=== PATIENT | female | born 1975 | race Caucasian/White ===

== ENCOUNTER 2023-06-17 11:01 | Emergency (ER) | payer OTHER ==
[2023-06-17 11:08] VITALS: TEMP 97.1
--- NOTE | 2023-06-17 11:17 | ERPHSYRPT ---
- History of Present Illness Time Seen by Provider: 06/17/23 11:10 Historian: patient Exam Limitations: no limitations Patient Subjective Stated Complaint: Pt states "I was working and I have had chest pain since yesterday and I am under a ton of stress and the nurses where I work said my blood pressure was up and told me to come here." Triage Nursing Assessment: pt presented alert and oriented X 3, skin pwd. Pt ambulates with an upright steady gait, able to speak in clear full sentenecs. Pt in no apparent distress. Physician History: 47-year-old female presents to our ED for evaluation of chest pain. Patient states that chest pain started yesterday. Patient was at work today. 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 Patient states she developed some chest pain at that time. Patient told the nurse that she works with. They checked her blood pressure found it was elevated and instructed her to come to our ED. Patient's pain described as an ache that is substernal. No radiation. No associated shortness of breath no nausea vomiting or diaphoresis. Patient voices no other complaints or concerns at this time. Portions of this note were created with voice recognition technology. There may be grammatical, spelling, punctuation or sound alike errors Timing/Duration: yesterday Activities at Onset: none Quality: aching Location: substernal Chest Pain Radiation: no radiation Severity of Pain-Max: moderate Severity of Pain-Current: mild Modifying Factors: Improves With: nothing Associated Symptoms: denies symptoms Prior Chest Pain/Cardiac Workup: no prior chest pain Nitro Today/Relief: no nitro taken today Aspirin Treatment Today: no aspirin today Allergies/Adverse Reactions: morphine Allergy (Intermediate, Verified 06/17/23 11:08) itch and hives Home Medications: No Reportable Medications [No Reported Medications] 06/17/23 [History] Hx Tetanus, Diphtheria Vaccination/Date Given: No Hx Influenza Vaccination/Date Given: Yes Hx Pneumococcal Vaccination/Date Given: No Immunizations Up to Date: No Travel Risk - International Travel Have you traveled outside of the country in past 3 weeks: No - Coronavirus Screening Are you exhibiting any of the following symptoms?: No Close contact with a COVID-19 positive Pt in past 14-21 Days: No - Vaccine Status Have you recieved a Covid-19 vaccination: No - Review of Systems Constitutional: No Symptoms, No Fever, No Chills Eyes: No Symptoms Ears, Nose, & Throat: No Symptoms Respiratory: No Symptoms, No Cough, No Dyspnea Cardiac: No Symptoms, No Chest Pain, No Edema, No Syncope Abdominal/Gastrointestinal: No Symptoms, No Abdominal Pain, No Nausea, No Vomiting, No Diarrhea Genitourinary Symptoms: No Symptoms, No Dysuria Musculoskeletal: No Symptoms, No Back Pain, No Neck Pain Skin: No Symptoms, No Rash Neurological: No Symptoms, No Dizziness, No Focal Weakness, No Sensory Changes Psychological: No Symptoms Endocrine: No Symptoms Hematologic/Lymphatic: No Symptoms Immunological/Allergic: No Symptoms All Other Systems: Reviewed and Negative - Past Medical History Pertinent Past Medical History: Yes Psycho-Social History: Anxiety, Depression - Past Surgical History Past Surgical History: Yes Other Surgical History: left knee replacement. hysterectomy. parathyroid. lasix - Social History Smoking Status: Never smoker Exposure to second hand smoke: No Drug Use: none Patient Lives Alone: No - Female History Hx Last Menstrual Period: 2012 Hx Now: No - Nursing Vital Signs Nursing Vital Signs: Initial Vital Signs Pulse Rate 73 06/17/23 11:01 Respiratory Rate 17 06/17/23 11:01 Blood Pressure 162/78 06/17/23 11:01 O2 Sat by Pulse Oximetry 99 06/17/23 11:01 Pain Scale Pain Intensity 0 - Physical Exam General Appearance: no apparent distress, alert Eye Exam: PERRL/EOMI, eyes nml inspection Ears, Nose, Throat Exam: normal ENT inspection, moist mucous membranes Neck Exam: normal inspection, non-tender, supple, full range of motion Respiratory Exam: normal breath sounds, lungs clear, No respiratory distress Cardiovascular Exam: regular rate/rhythm, normal heart sounds Gastrointestinal/Abdomen Exam: soft, No tenderness, No mass Back Exam: normal inspection, No CVA tenderness, No vertebral tenderness Extremity Exam: normal inspection, normal range of motion Neurologic Exam: alert, oriented x 3, cooperative, normal mood/affect, sensation nml, No motor deficits Skin Exam: normal color, warm, dry Lymphatic Exam: No adenopathy SpO2 Interpretation: normal SpO2: 100 O2 Delivery: Room Air - Course Nursing assessment & vital signs reviewed: Yes EKG Interpreted by Me: RATE, Sinus Rhythm, NORMAL AXIS, NORMAL INTERVALS - Radiology Exams Chest X-ray Interpretation: Teleradiologist Report (No acute findings) Ordered Tests: Active Orders 24 hr Category Date Time Status Posting Clerk STAT Care 06/17/23 11:16 Active EKG-ER Only STAT Care 06/17/23 11:15 Active IV Insertion STAT Care 06/17/23 11:15 Active Pulse Oximetry (ED) STAT Care 06/17/23 11:15 Active CHEST 1 VIEW (PORTABLE) Stat Exams 06/17/23 12:46 Completed CBC W DIFF Stat Lab 06/17/23 11:20 Completed CMP Stat Lab 06/17/23 11:20 Completed D-DIMER QUANTITATIVE Stat Lab 06/17/23 11:20 Completed TROPONIN Q4H Lab 06/17/23 11:20 Completed TROPONIN Q4H Lab 06/17/23 14:00 Completed TROPONIN Q4H Lab 06/17/23 19:30 Ordered Medication Summary Discontinued Medications Generic Name Dose Route Start Last Admin Trade Name Freq PRN Reason Stop Dose Admin Diphenhydramine HCl 25 mg 06/17/23 12:47 06/17/23 12:49 Diphenhydramine Hcl 50 Mg/Ml Vial IV 06/17/23 12:48 25 mg STAT ONE Administration Diphenhydramine HCl Confirm 06/17/23 12:48 Diphenhydramine Hcl 50 Mg/Ml Vial Administered 06/17/23 12:49 Dose 50 mg .ROUTE .STK-MED ONE Nitroglycerin 1 gm 06/17/23 12:44 06/17/23 12:48 Nitroglycerin 1 Gm Packet TOP 06/17/23 12:45 1 gm STAT ONE Administration Nitroglycerin Confirm 06/17/23 12:48 Nitroglycerin 1 Gm Packet Administered 06/17/23 12:49 Dose 1 gm .ROUTE .STK-MED ONE Lab/Rad Data: Laboratory Result Diagrams 06/17/23 11:20 06/17/23 11:20 Laboratory Results 06/17/23 06/17/23 06/17/23 Range/Units 14:00 11:20 11:20 WBC (4.0-10.5) x10^3/uL RBC (4.1-5.4) x10^6/uL Hgb (12.0-16.0) g/dL Hct (35-47) % MCV (78-100) fL MCH (26-32) pg MCHC (32-36) g/dL RDW (11.5-14.0) % Plt Count (150-450) x10^3/uL MPV (7.5-11.0) fL Gran % (36.0-66.0) % Immature Gran % (Auto) (0.00-0.4) % Nucleat RBC Rel Count (0.00-0.1) % Eos # (Auto) (0-0.5) x10^3/uL Immature Gran # (Auto) (0.00-0.03) x10^3u/L Absolute Lymphs (auto) (1.0-4.6) x10^3/uL Absolute Monos (auto) (0.0-1.3) x10^3/uL Absolute Nucleated RBC (0.00-0.01) x10^3u/L Lymphocytes % (24.0-44.0) % Monocytes % (0.0-12.0) % Eosinophils % (0.00-5.0) % Basophils % (0.0-0.4) % Absolute Granulocytes (1.4-6.9) x10^3/uL Basophils # (0-0.4) x10^3/uL D-Dimer 0.37 (0.0-0.50) mg/L Sodium (135-145) mmol/L Potassium (3.5-5.1) mmol/L Chloride (98-107) mmol/L Carbon Dioxide (22-30) mmol/L Anion Gap (5-15) MEQ/L BUN (7-17) mg/dL Creatinine (0.52-1.04) mg/dL Estimated GFR ML/MIN Glucose (74-106) mg/dL Calcium (8.4-10.2) mg/dL Total Bilirubin (0.2-1.3) mg/dL AST (14-36) U/L ALT (0-35) U/L Alkaline Phosphatase (38-126) U/L Troponin I < 0.012 < 0.012 (0.000-0.034) ng/mL Serum Total Protein (6.3-8.2) g/dL Albumin (3.5-5.0) g/dL 06/17/23 06/17/23 Range/Units 11:20 11:20 WBC 6.5 (4.0-10.5) x10^3/uL RBC 4.72 (4.1-5.4) x10^6/uL Hgb 12.8 (12.0-16.0) g/dL Hct 40.5 (35-47) % MCV 85.8 (78-100) fL MCH 27.1 (26-32) pg MCHC 31.6 L (32-36) g/dL RDW 13.3 (11.5-14.0) % Plt Count 217 (150-450) x10^3/uL MPV 9.0 (7.5-11.0) fL Gran % 65.5 (36.0-66.0) % Immature Gran % (Auto) 0.5 H (0.00-0.4) % Nucleat RBC Rel Count 0.0 (0.00-0.1) % Eos # (Auto) 0.12 (0-0.5) x10^3/uL Immature Gran # (Auto) 0.03 (0.00-0.03) x10^3u/L Absolute Lymphs (auto) 1.50 (1.0-4.6) x10^3/uL Absolute Monos (auto) 0.53 (0.0-1.3) x10^3/uL Absolute Nucleated RBC 0.00 (0.00-0.01) x10^3u/L Lymphocytes % 23.1 L (24.0-44.0) % Monocytes % 8.2 (0.0-12.0) % Eosinophils % 1.8 (0.00-5.0) % Basophils % 0.9 (0.0-0.4) % Absolute Granulocytes 4.26 (1.4-6.9) x10^3/uL Basophils # 0.06 (0-0.4) x10^3/uL D-Dimer (0.0-0.50) mg/L Sodium 139 (135-145) mmol/L Potassium 3.7 (3.5-5.1) mmol/L Chloride 105 (98-107) mmol/L Carbon Dioxide 28 (22-30) mmol/L Anion Gap 10.7 (5-15) MEQ/L BUN 15 (7-17) mg/dL Creatinine 0.56 (0.52-1.04) mg/dL Estimated GFR 113.9 ML/MIN Glucose 97 (74-106) mg/dL Calcium 8.5 (8.4-10.2) mg/dL Total Bilirubin 0.60 (0.2-1.3) mg/dL AST 27 (14-36) U/L ALT 21 (0-35) U/L Alkaline Phosphatase 116 (38-126) U/L Troponin I (0.000-0.034) ng/mL Serum Total Protein 7.5 (6.3-8.2) g/dL Albumin 4.1 (3.5-5.0) g/dL - Progress Progress: improved Air Movement: good Progress Note: Heart score is 3 47-year-old female presents to our ED for evaluation of chest pain x 2 days. Patient has a BMI of 47. She otherwise states she has no significant past medical history but she has limited follow-up with primary care doctor. Patient reassessed. She is resting comfortably. Patient has not no chest pain. D- dimer negative. Troponin negative x 2. EKG normal sinus rhythm. Chest x-ray negative for acute findings. patient does not have a primary care doctor to follow-up with that she is from [place]. Patient referred to Dr. Yeboah for follow-up. We will attempt to arrange follow-up for our patient this week. Patient otherwise feels well. Patient states he is ready for discharge. She v oices no other complaints or concerns at this time. Portions of this note were created with voice recognition technology. There may be grammatical, spelling, punctuation or sound alike errors Complexity of problem addressed is moderate acute complicated No critical care time Complex of data reviewed and analyzed is moderate. Test ordered test reviewed. Results analyzed and correlated clinically with history and physical exam. Risk of complication and or risk of morbidity/mortality of patient management is low Vital stable. Time spent to discharge patient is approximately 20 minutes. Plan of care established for shared decision making. No social determinants of health present impede follow-up. Portions of this note were created with voice recognition technology. There may be grammatical, spelling, punctuation or sound alike errors 06/17/23 15:08 Blood Culture(s) Obtained: No Antibiotics given: No Counseled pt/family regarding: lab results, diagnosis, need for follow-up, rad results - Departure Departure Disposition: Home Clinical Impression: Chest pain Condition: Stable Critical Care Time: No Referrals: DOCTOR,NO FAMILY [Primary Care Provider] - Follow up/PCP as directed DEJA YEBOAH DO [ACTIVE STAFF] - Follow up/PCP as directed Additional Instructions: Discharge/Care Plan NIMO ERAZO was seen on 06/17/23 in the Emergency Room. The patient was counseled regarding Diagnosis,Lab results, Imaging studies, need for follow up and when to return to the Emergency Room. Prescriptions given: Discharge Note I have spoken with the patient and/or caregivers. I have explained the patient's condition, diagnosis and treatment plan based on the information available to me at this time. I have answered the patient's and/or caregiver's questions and addressed any concerns. The patient and/or caregivers have as good understanding of the patient's diagnosis, condition and treatment plan as can be expected at this point. The vital signs have been stable. The patient's condition is stable and appropriate for discharge from the emergency department. The patient will pursue further outpatient evaluation with the primary care physician or other designated or consulting physician as outlined in the discharge instructions. The patient and/or caregivers are agreeable to this plan of care and follow-up instructions have been explained in detail. The patient and/or caregivers have received these instruction. The patient/and or caregivers are aware that any significant change in condition or worsening of symptoms should prompt an immediate return to this or the closest emergency department or call 911.
[2023-06-17 11:28] LABS: Absolute Neutrophil Ct (ANC) 4.26 x10^3/uL (1.4-6.9); BASOPHIL % 0.9 % (0.0-0.4); Basophil (Absolute #) 0.06 x10^3/uL (0-0.4); Eosinophil % 1.8 % (0.00-5.0); Eosinophil (Absolute #) 0.12 x10^3/uL (0-0.5); Hematocrit 40.5 % (35-47); Hemoglobin 12.8 g/dL (12.0-16.0); IMMATURE GRAN # 0.03 x10^3u/L (0.00-0.03); IMMATURE GRAN % 0.5 % (0.00-0.4); Lymphocytes % 23.1 % (24.0-44.0); Mean Cell Volume 85.8 fL (78-100); Mean Corpuscular Hemoglobin 27.1 pg (26-32); Mean Corpuscular Hgb Concent. 31.6 g/dL (32-36); Monocyte (Absolute #) 0.53 x10^3/uL (0.0-1.3); Monocytes % 8.2 % (0.0-12.0); Neutrophil % 65.5 % (36.0-66.0); Platelet Count 217 x10^3/uL (150-450); Red Blood Count 4.72 x10^6/uL (4.1-5.4); Red Cell Distribution Width 13.3 % (11.5-14.0); White Blood Count 6.5 x10^3/uL (4.0-10.5)
[2023-06-17 12:19] LABS: ALBUMIN 4.1 g/dL (3.5-5.0); ANION GAP 10.7 MEQ/L (5-15); BILIRUBIN,TOTAL 0.6 mg/dL (0.2-1.3); Calcium 8.5 mg/dL (8.4-10.2); Creatinine 1 0.56 mg/dL (0.52-1.04); EST GLOMERULAR FILTRATION RATE 113.9 ML/MIN; Potassium 3.7 mmol/L (3.5-5.1); Total Protein 7.5 g/dL (6.3-8.2)
[2023-06-17] MEDS: NITRO-BID 2% UD PACKETS TOP ONE (12:48)
[2023-06-17] MEDS ORDERED: NITRO-BID 2% UD PACKETS ONE (12:48)
[2023-06-17] MEDS ORDERED: BENADRYL 50 MG/ML ONE (12:48)
[2023-06-17] MEDS: BENADRYL 50 MG/ML IV ONE (12:49)
--- NOTE | 2023-06-17 13:13 | XRAY ---
Indication: Chest pain. Comparison: None Portable chest demonstrates minimal right midlung subsegmental atelectasis/scarring. Remaining heart and lungs unremarkable. Bony thorax intact.
[2023-06-17 15:12] VITALS: O2SAT 100
[2023-06-17 15:16] VITALS: BP 146/95; PULSE 76; RESP 16
== END 2023-06-17 15:35 | disposition home or self-care (01) ==
LOC: ED 11:01
DX: R07.9 Chest pain, unspecified (principal); Z20.828 Contact with and (suspected) exposure to other viral communicable diseases
CPT/HCPCS: 36000; 36415; 71045; 80053; 84484; 85025; 85379; 93005; 93041; 94760; 96374; 99284; J1200; A9270-GY